=== PATIENT | female | born 1990 | race Caucasian/White ===

== ENCOUNTER 2017-10-19 08:14 | Inpatient (IN) | payer BC ==
[2013-01-28 23:06] VITALS: BMI 25.8
[2017-10-19 08:47] LABS: BASO % 0.6 % (0.0-2.0); EOS % 0.6 % (0.0-4.0); HEMOGLOBIN 9.9 g/dL (11.0-16.0); LYMPH # 1.8 K/uL (1.0-4.3); LYMPH % 24.2 % (20.0-40.0); MEAN CELL VOLUME 80.6 fL (81.0-99.0); MEAN CORPUSCULAR HEMOGLOBIN 26.8 pg (27.0-31.0); MEAN CORPUSCULAR HGB CONC 33.2 g/dL (33.0-37.0); MEAN PLATELET VOLUME 9.8 fL (7.2-11.7); MONO # 0.4 K/uL (0.0-0.8); MONO % 4.8 % (0.0-10.0); NEUT # 5.2 K/uL (1.8-7.0); NEUT % 69.8 % (50.0-75.0); RBC 3.68 Mil/uL (3.80-5.20); RED CELL DISTRIBUTION WIDTH 14.7 % (11.5-14.5); WHITE BLOOD COUNT 7.4 K/uL (4.8-10.8)
[2017-10-19 08:55] LABS: BLOOD UREA NITROGEN 5 mg/dL (7-17); CALCIUM 8.9 mg/dl (8.6-10.4); GFR AFRICAN-AMERICAN > 60; GFR NON-AFRICAN AMERICAN > 60
[2017-10-19 09:00] LABS: SQUAMOUS EPITHIAL 28 /hpf (0-5); URINE BACTERIA MOD (<OCC); URINE BILIRUBIN NEGATIVE (NEGATIVE); URINE BLOOD 1+ (NEGATIVE); URINE CLARITY Hazy (Clear); URINE COLOR Yellow (YELLOW); URINE GLUCOSE (UA) NORMAL (Normal); URINE LEUKOCYTE ESTERASE 3+ Leu/uL (Negative); URINE PROTEIN NEGATIVE (NEGATIVE); URINE UROBILINOGEN NORMAL mg/dL (0.2-1.0)
[2017-10-19] MEDS ORDERED: Lactated Ringer's 1,000 ML IV ONE (09:15)
[2017-10-19] MEDS ORDERED: Sodium Citrate/Citric Acid 15 ml Sol ONE (09:39)
[2017-10-19] MEDS ORDERED: cefOXitin IV 2 gm in Saline 2 GM/50 ML BAG IVPB ONE (09:39)
[2017-10-19] MEDS ORDERED: Oxytocin 20 units in LR 2,000 ML IV ONE (09:40)
[2017-10-19] MEDS: Sodium Citrate/Citric Acid 15 ml Sol PO ONE (10:00)
[2017-10-19] MEDS ORDERED: cefOXitin IV 2 gm in Dextrose 2 GM/50 ML BAG IVPB ONE (10:00)
--- NOTE | 2017-10-19 10:15 | OBHP ---
Datetime: 10/19/2017 10:10 IP Adm Impression: Term, intrauterine IP Admit Plan: Admit to unit Admit Comment, IP Provider: @ 39.2 wks GA previous cxs, c/o ctx pain irregular, increasing i ntesnity adn freuqency, dnies lof, vb, +FM OB: Previoucs CxS age 12 adoption closed in [employer]: dneis hx of abnormla pap, fibroids, ovairan cyst, STi PMH: Anemia PSH: CxS FHX: non contrribotory MEDS: PNV, Iron SHX: negative etoh/tobacco/drugs A/P @ 39.2 wks GA previous cesearen section in early labor admit to L+D npo, ivf admission labs cont toco adn efm analgesis prn antibiocs abdomina prep dudley to gravity scds Pelvic Type - PN: Adequate Extremities - PN: Normal Abdomen - PN: Normal Back - PN: Normal Breast - PN: Not Done Lungs - PN: Normal Heart - PN: Normal Thyroid - PN: Not Done Neurologic - PN: Normal HEENT - PN: Normal General - PN: Normal Presentation-Admit: Vertex FHR - Baseline A Provider: 150 Membranes, Provider: Intact Contraction Comments Provider: irregular Gestation - Est Wks by US: 39.2 IP Hx Assessment: The History has been Reviewed and is Current EGA AdmitDate IP: 39.2 Vital Signs Provider: Reviewed; Within Normal Limits IP Chief Complaint: Uterine contractions NICHD Variability Prov Fetus A: Moderate 6-25bpm FHR Category Provider Fetus A: Category I NICHD Decel Fetus A IP Provider: None Dilatation, Provider: 2 Effacement, Provider: 50 Station, Provider: -3 Genitourinary Exam: Normal DTRs - PN: Normal
--- NOTE | 2017-10-19 10:31 | OBADHP ---
Datetime: 10/19/2017 10:10 Admit Comment, IP Provider: @ 39.2 wks GA previous cxs, c/o ctx pain irregular, increasing i ntesnity adn freuqency, dnies lof, vb, +FM OB: Previoucs CxS age 12 adoption closed in [employer]: dneis hx of abnormla pap, fibroids, ovairan cyst, STi PMH: Anemia PSH: CxS FHX: non contrribotory MEDS: PNV, Iron SHX: negative etoh/tobacco/drugs A/P @ 39.2 wks GA previous cesearen section in early labor admit to L+D npo, ivf admission labs cont toco adn efm analgesis prn antibiocs abdomina prep dudley to gravity scds Pelvic Type - PN: Adequate Extremities - PN: Normal Abdomen - PN: Normal Back - PN: Normal Breast - PN: Not Done Lungs - PN: Normal Heart - PN: Normal Thyroid - PN: Not Done Neurologic - PN: Normal HEENT - PN: Normal General - PN: Normal Presentation-Admit: Vertex FHR - Baseline A Provider: 150 Membranes, Provider: Intact Contraction Comments Provider: irregular Gestation - Est Wks by US: 39.2 IP Hx Assessment: The History has been Reviewed and is Current Vital Signs Provider: Reviewed; Within Normal Limits IP Chief Complaint: Uterine contractions NICHD Variability Prov Fetus A: Moderate 6-25bpm FHR Category Provider Fetus A: Category I NICHD Decel Fetus A IP Provider: None Dilatation, Provider: 2 Effacement, Provider: 50 Station, Provider: -3 Genitourinary Exam: Normal DTRs - PN: Normal EGA AdmitDate IP: 39.2 IP Adm Impression: Term, intrauterine IP Admit Plan: Admit to unit
[2017-10-19] MEDS ORDERED: Morphine 1 mg/ml preservative-free Inj(Duramorph) ONE (10:39)
--- NOTE | 2017-10-19 12:11 | OBDS ---
DELIVERY PERSONNEL Delivery Doctor: Po Hugo MD Scrub Nurse: Marlen Lam Commercial Real Estate Manager: Ulices Finn RN Anesthesiologist: anayeli MATERNAL INFORMATION Delivery Anesthesia: Spinal Placenta Cultured: No Maternal Complications: None Other Maternal Complications: anemia 9.9 HgB RN Comments: previous c/s 15 years ago Provider Comments: repeat cesearen sectin live femlae aprgta 9,9 weigh tof 6lb 5 ounces normal appearing uteurs, tubes adn ovaries bilaterally pediatricna presnt for delivery ebl 800ml LABOR SUMMARY EDC: 10/24/2017 00:00 No. Babies in Womb: 1 Attempted: No Labor Anesthesia: None LABOR INFORMATION Reason for Induction: Not Applicable Oxytocin: N/A Group B Beta Strep: Negative Steroids Given: None Reason Steroids Not Administered: Not Applicable MEMBRANES Membranes Rupture Method: Artificial Rupture of Membranes: 10/19/2017 11:23 Length of Rupture (hrs): 0.02 Amniotic Fluid Color: Clear Amniotic Fluid Amount: Small STAGES OF LABOR Stage 3 hrs: 0 Stage 3 min: 1 CSECTION DELIVERY Primary Indication: Repeat Elective CSection Urgency: Elective CSection Incidence: Repeat Labor: Labor Elective: Elective CSection Incision: Lower Uterine Transverse BABY A INFORMATION Delivery Date/Time: 10/19/2017 11:24 Method of Delivery: Born in Route : No : N/A Forceps: N/A Vacuum Extraction: N/A Shoulder Dystocia : No SHOULDER DYSTOCIA BABY A Infant Delivery Date/Time: 10/19/2017 11:24 PRESENTATION/POSITION BABY A Presentation: Cephalic Breech Presentation: N/A PLACENTA INFORMATION BABY A Placenta Delivery Time : 10/19/2017 11:25 Placenta Method of Delivery: Manual Removal Placenta Status: Delivered SCORES BABY A Heart Rate 1 min: >100 bpm Resp Effort 1 min: Good Cry Reflex Irritability 1 min: Cough or Sneeze or Pulls Away Muscle Tone 1 min: Active Motion Color 1 min: Body [place], Extremities Blue Resuscitation Effort 1 min: N/A SCORE 1 MIN: 9 Heart Rate 5 min: >100 bpm Resp Effort 5 min: Good Cry Reflex Irritability 5 min: Cough or Sneeze or Pulls Away Muscle Tone 5 min: Active Motion Color 5 min: Body [place], Extremities Blue Resuscitation Effort 5 min: N/A SCORE 5 MIN: 9 INFANT INFORMATION BABY A Gestational Age at Delivery: 39.2 Gestational Status: Term Outcome : Liveborn Infant Condition : Stable Sex: Female IDENTIFICATION/MEDS BABY A ID Band Number: [id number] Sensor Number: [id number] WEIGHT/LENGTH BABY A Birthweight (gms): 2860 Weight (lb): 6 Weight (oz): 5 Infant Length Inches: 19.25 Infant Length cms: 48.9 CORD INFORMATION BABY A No. Cord Vessels: 3 Nuchal Cord : Around Neck x1, Loose Cord Blood Taken: Yes Suction: None; Mouth
--- NOTE | 2017-10-19 12:14 | PCM.SURG1 ---
Surgeon's Initial Post Op Note - Surgeon's Notes Surgeon: Whitney Hugo MD Legal File Clerk: Abdon Drew MD Type of Anesthesia: Spinal Pre-Operative Diagnosis: Term intrauterine 39+weeks, previous cesearen section, in early labor Operative Findings: live female infant apgars 9, 9 weight of 6lbs 5 ounces normal appearing uterus, tubes and ovaries bilaterally. peditaricin present for delivery. Dr Abdon Drew was surgical elastic knitter and present for entire case and essential in gaining entry, retraction, exposure, holding bladder blade, helping t close all layers and delivery . Post-Operative Diagnosis: same as above Operation Performed: repeat low transverse cesearean section Specimen/Specimens Removed: placenta Estimated Blood Loss: EBL {In ML}: 800 Blood Products Given: N/A Drains Used: No Drains Post-Op Condition: Good Date of Surgery/Procedure: 10/19/17 Time of Surgery/Procedure: 10:55
[2017-10-19] MEDS ORDERED: DiphenhydrAMINE 50 mg/ml Inj IVP PRN (12:41)
--- NOTE | 2017-10-20 07:20 | OP ---
PROCEDURE DATE: 10/19/2017 SURGEON: Whitney Hugo MD PHYSICAL THERAPIST: Abdon Drew MD TYPE OF ANESTHESIA: General. PREOPERATIVE DIAGNOSES: Term intrauterine at 39 weeks, previous section, and early labor. OPERATIVE FINDINGS: Live female infant, 9 and 9, weight of 6 pounds and 5 ounces. Normal-appearing uterus, tubes, and ovaries bilaterally. Dr. Abdon rDew was events assistant who was present for the entire case and essential in gaining entry, retraction, exposure, holding the bladder blade, closing all layers, and delivering infant. POSTOPERATIVE DIAGNOSES: Term intrauterine 39 weeks, previous section, and early labor. OPERATION PERFORMED: Repeat low transverse section. SPECIMEN REMOVED: Placenta. ESTIMATED BLOOD LOSS: 800 mL. BLOOD PRODUCTS: None. COMPLICATIONS: None. After the risks, benefits, and alternatives of the planned procedure including, but not limited to, infection, hemorrhage, deep vein thrombosis, atelectasis, pneumonia, pulmonary embolism, damage to the bladder, damage to the ureter, renal insufficiency, bowel or renal failure, wound infection, wound dehiscence, incisional hernia, keloid formation, damage to the large and small intestines, damage to the inferior vena cava; anesthesia complications, electrolyte imbalance, possible , edema, embolism, and other complications were discussed and explained to the patient and all of her questions were answered. Informed consent was obtained. DESCRIPTION OF PROCEDURE: The patient was taken to the operating room in stable condition. Under suitable level of spinal anesthesia, she was prepped and draped in sterile fashion. After having been placed in a supine position, the patient was given preoperative prophylactic antibiotics. The abdomen was entered through a previous Pfannenstiel-type incision, carried down to the subcutaneous tissue through the fascia. Fascia was opened transversely and dissected up to the rectus abdominus musculature. Rectus abdominus musculature was then in the midline to remove the parietal peritoneum which was entered sharply and incised superiorly in a curvilinear fashion, dissected up to the lower uterine segment. The lower uterine segment was then entered through a curvilinear incision. Surgeon's fingers were then inserted into the lower uterine segment to grasp the 's head which was lying in a right occiput anterior position. The head was easily delivered. Nose and mouth were suctioned free of amniotic fluid and remainder of the infant was delivered without any difficulty. Cord was doubly clamped and cut and baby was handed over to the cnmt who was an attendant. A section of the cord was submitted for cord gasses. Cord blood was then collected. The placenta was then delivered manually. The uterus was then cleared off all clots and debris. The uterine incision was closed in two layers with the first layer being a running continuous 0 Vicryl with the second layer of the same suture was used to close the uterus in an imbricated manner. Good hemostasis was noted. Parietal peritoneum was then reapproximated using running suture of 2-0 chromic. Following this, the peritoneal cavity was then irrigated using copious amount of saline. The saline was evacuated. The abdomen was then closed, peritoneum using 2-0 chromic, the rectus muscle was reapproximated using 2-0 chromic in an interrupted fashion. The fascial layer was reapproximated and closed with 0 Vicryl in a running continuous fashion. The subcutaneous space was closed with 2-0 plain in an interrupted manner. The skin was reapproximated and closed with 4-0 Monocryl in a running subcuticular fashion . At the end of the procedure, all needles, sponge, and instrument counts were noted to be correct x2. The patient tolerated the procedure well and was transferred to the recovery room in stable condition. Whitney Hugo MD
[2017-10-20 08:25] LABS: HEMOGLOBIN 8.6 g/dL (11.0-16.0); MEAN CORPUSCULAR HEMOGLOBIN 26.8 pg (27.0-31.0); MEAN CORPUSCULAR HGB CONC 33.4 g/dL (33.0-37.0); MEAN PLATELET VOLUME 9.2 fL (7.2-11.7); RBC 3.23 Mil/uL (3.80-5.20); RED CELL DISTRIBUTION WIDTH 14.7 % (11.5-14.5); WHITE BLOOD COUNT 8.8 K/uL (4.8-10.8)
--- NOTE | 2017-10-20 08:39 | OBPPN ---
Datetime: 10/20/2017 08:35 PP Pain Prov: Within normal limits PP Nausea Prov: Denies PP Flatus Prov: No PP BM Prov: No PP Breasts Prov: Normal PP Heart Prov: Normal PP Lungs Prov: Normal PP Abdomen/Uterus Prov: Normal PP Lochia Prov: Normal PP Vulva/Perineum Prov: Normal PP CVA Tenderness Prov: Normal PP Extremities Prov: Normal PP C/S Incision Prov: Normal PP Progress Prov: Normal PP Impression Prov: Normal progression PP Plan Prov: Continue present management PP Progress Note Prov: pt seen and examiend and rpeorts [facility] pt ambuitng, voidgn, passing flatus, tolerating diet without nause, vomiting. pt is breast feeding. pt dnies any fever, chills, cp, sob, bowel ro bladder concners. pt nile any sadness or depressoin VSS PE GEN NAD AAO X 3 RESP: CTRAB?L CVS: RRR, +S1/S2 ABD: soft, NT/ND, no guaridng,no reobund tendnere no rigity, no uteirne tennders Incsion c/d/i healing wlel VE: minimla lochia, ext; No calf tenderss b/l, negative hmona sign s/p rltcxs pod #1 pain mamagnnet enocurabe breast feedign and mabuaitopn am labs bowel regimen abdominla binder/incenetive spirometer Vital Signs Provider PP: Reviewed; Within Normal Limits
[2017-10-20 08:40] LABS: ALB/GLOB RATIO 0.9 (1.0-2.1); ALBUMIN 2.6 g/dL (3.5-5.0); ALT/SGPT 24 U/L (9-52); AST/SGOT 18 U/L (14-36); BLOOD UREA NITROGEN 2 mg/dL (7-17); CALCIUM 8.2 mg/dl (8.6-10.4); GFR AFRICAN-AMERICAN > 60; GFR NON-AFRICAN AMERICAN > 60
[2017-10-20] MEDS: Prenatal Multivit/Folic Acid/Iron Tab PO SCH (09:25)
[2017-10-20] MEDS ORDERED: Bisacodyl 5mg EC Tab PO ONE (12:15)
[2017-10-20] MEDS: Simethicone 80 mg Chewtab PO SCH ×3 (13:26→22:07)
[2017-10-20] MEDS: Oxycodone/Acetaminophen 5/325 mg Tab PO PRN ×2 (13:48→17:42)
[2017-10-21] MEDS: Oxycodone/Acetaminophen 5/325 mg Tab PO PRN ×4 (03:47→21:46)
[2017-10-21] MEDS: Simethicone 80 mg Chewtab PO SCH ×4 (10:09→21:47)
[2017-10-21] MEDS: Prenatal Multivit/Folic Acid/Iron Tab PO SCH (10:10)
[2017-10-21 16:59] VITALS: PULSE 76
[2017-10-21] MEDS ORDERED: Magnesium Citrate Oral SOL (300 ml) PO ONE (18:00)
[2017-10-22 08:50] VITALS: RESP 20; TEMP 97.6; O2SAT 100
[2017-10-22] MEDS: Simethicone 80 mg Chewtab PO SCH (09:35)
[2017-10-22] MEDS: Prenatal Multivit/Folic Acid/Iron Tab PO SCH (09:36)
[2017-10-22] MEDS: Oxycodone/Acetaminophen 5/325 mg Tab PO PRN (09:37)
[2017-10-22 20:32] VITALS: BP 110/73
== END 2017-10-22 13:15 | disposition home or self-care (01) | DRG 766 ==
LOC: C.EROB 08:14 → C.4LDOR 08:40 → C.4D 09:00 → C.4M 14:49
PROVIDERS: ADMIT Obstetrics & Gynecology; ATTEND Obstetrics & Gynecology
PROC: 10D00Z1 Extraction of Products of Conception, Low, Open Approach (ICD-10-PCS; principal; 2017-10-19)
DX: O34.211 Maternal care for low transverse scar from previous cesarean delivery (principal); O69.81X0 Labor and delivery complicated by cord around neck, without compression, not applicable or unspecified; O99.02 Anemia complicating childbirth; D64.9 Anemia, unspecified; Z3A.39 39 weeks gestation of pregnancy; Z37.0 Single live birth